=== PATIENT | female | born 2000 | race Caucasian/White ===

== ENCOUNTER 2019-07-20 16:02 | Emergency (ER) | payer BC ==
[~2019-07-20] VITALS: Ht 157.5 cm; Wt 46.7 kg
[2019-07-20 16:43] LABS: URINE BILIRUBIN NEGATIVE (Negative); URINE BLOOD NEGATIVE (Negative); URINE CLARITY CLEAR; URINE COLOR YELLOW; URINE GLUCOSE-RANDOM NEGATIVE (Negative); URINE KETONES 2+ (Negative); URINE LEUKOCYTES-REFLEX NEGATIVE (Negative); URINE NITRITE-REFLEX NEGATIVE (Negative); URINE PROTEIN NEGATIVE (Negative); URINE UROBILINOGEN 0.2 E.U./dl (0.2-1.0)
[2019-07-20 16:58] LABS: ABSOLUTE BASOPHILS 0.1 thou/uL (0.0-0.2); ABSOLUTE LYMPHOCYTES 1.5 thou/uL (0.8-5.3); ABSOLUTE MONOCYTES 0.6 thou/uL (0.0-1.2); BASOPHILS 0.5 %; EOSINOPHILS 0.1 %; HEMATOCRIT 38.7 % (37.0-47.0); HEMOGLOBIN 12.9 gm/dL (12.0-15.0); MCH 30.3 pg (26.0-34.0); MCHC 33.4 g/dL (28.0-37.0); MCV 90.8 fL (80.0-100.0); MONOCYTES 4.7 %; MPV 9.8 fl. (7.2-11.1); NUCLEATED RBCS 0 /100WBC; PLATELET COUNT* 256 thou/uL (150-400); POLYS 82.7 %; RBC 4.26 mil/uL (4.20-5.00); RDW-CV 14.7 % (10.5-14.5); WBC 12.1 thou/uL (4.0-11.0)
[2019-07-20 17:05] LABS: CALCIUM 9.3 mg/dL (8.5-10.1); CREATININE 0.7 mg/dL (0.6-1.3); POTASSIUM 3.8 mmol/L (3.5-5.1)
[2019-07-20 17:09] LABS: ALBUMIN 4.1 g/dL (3.4-5.0); TOTAL BILIRUBIN 0.4 mg/dL (<0.1-1.0); TOTAL PROTEIN 8.3 g/dL (6.4-8.2)
[2019-07-20] MEDS ORDERED: ONDANSETRON HCL4 M2 PO (17:37)
[2019-07-20] MEDS ORDERED: TRINATE TABLET1 EACH PO (17:37)
[2019-07-20] MEDS ORDERED: NIGHTTIME SLEEP25 M1 PO (19:14)
[2019-07-20] MEDS ORDERED: PYRIDOXINE HCL50 MG PO (19:14)
[2019-07-20 19:18] VITALS: BP 116/76
== END 2019-07-20 19:19 | disposition home or self-care (01) ==
LOC: M.ERS 16:02
PROVIDERS: Nurse Practitioner Family
DX: O21.8 Other vomiting complicating pregnancy (principal); Z3A.01 Less than 8 weeks gestation of pregnancy

== ENCOUNTER 2020-08-29 15:10 | Emergency (ER) | payer BC ==
[~2020-08-29] VITALS: Ht 157.5 cm; Wt 49.9 kg
[~2020-08-29 15:10] MED LIST: NIGHTTIME SLEEP25 M1 PO; ONDANSETRON HCL4 M2 PO; PYRIDOXINE HCL50 MG PO; TRINATE TABLET1 EACH PO
[2020-08-29] MEDS ORDERED: KEFLEX500 M1 PO (15:58)
[2020-08-29] MEDS ORDERED: BACTRIM DS TAB1 EACH PO (15:58)
[2020-08-29 16:16] VITALS: BP 112/60
== END 2020-08-29 16:17 | disposition home or self-care (01) ==
LOC: M.ERS 15:10
DX: H00.034 Abscess of left upper eyelid (principal); Z88.8 Allergy status to other drugs, medicaments and biological substances